=== PATIENT | male | born 1995 | race Caucasian/White ===

== ENCOUNTER 2016-12-07 13:34 | Emergency (ER) | payer BC ==
[2016-12-07 13:45] VITALS: BP 138/72
[2016-12-07] MEDS ORDERED: PENI500T PO (14:24)
--- NOTE | 2016-12-07 14:24 | PHYS DOC ---
Adult General Chief Complaint Chief Complaint: SORE THROAT HPI HPI Patient is a 21-year-old male with a complaint of sore throat since yesterday. It's worse today. He can swallow. He denies fever or chills. He is in good general health. He has not had strep throat before. Allergies NKDA Review of Systems Review of Systems Constitutional: Denies fever or chills [] Physical Exam Physical Exam Constitutional: Well developed, well nourished, no acute distress, non-toxic appearance. Alert, mentating normally, voice is normal, he is swallowing without difficulty. HENT: Normocephalic, atraumatic, bilateral external ears normal, oropharynx moist, no oral exudates, nose normal. Tongue normal. Tonsils are 3+ enlarged bilaterally, red, with some exudates. Uvula is not swollen and is midline. Eyes: conjunctiva normal, no discharge. [] Neck: Normal range of motion, no stridor. [] EKG EKG [] Radiology/Procedures Radiology/Procedures [] Course & Med Decision Making Course & Med Decision Making Pertinent Labs and Imaging studies reviewed. (See chart for details) Rapid strep positive. Patient was offered a shot versus pills and he chose pills. See instructions for plan. [] Dragon Disclaimer Dragon Disclaimer This chart was dictated in whole or in part using Voice Recognition software in a busy, high-work load, and often noisy Emergency Department environment. It may contain unintended and wholly unrecognized errors or omissions. Departure Departure: Impression: Primary Impression: Strep throat Disposition: 01 HOME, SELF-CARE Condition: STABLE Referrals: PCP,NO (PCP) Patient Instructions: Strep Throat, [id number] Additional Instructions: Drink plenty of fluids. For throat pain, take ibuprofen 800 mg every 8 hours. You might try throat spray and lozenges. You are contagious for 24 hours, good handwashing, don't share spit. Scripts Penicillin V Potassium (PENICILLIN V POTASSIUM) 500 Mg Tablet 1 TAB PO TID for strep throat, #30 TAB Prov: ANDREW WILSON MD 12/07/16 ANDREW WILSON MD Dec 07, 2016 14:24
== END 2016-12-07 14:30 | disposition home or self-care (01) ==
LOC: ER 13:34
DX: J02.0 Streptococcal pharyngitis (principal)
CPT/HCPCS: 87880; 99283